=== PATIENT | male | born 1960 | race Caucasian/White ===

== ENCOUNTER → 2016-08-06 | Outpatient (CLI) | payer OTHER | END | disposition home or self-care (01) | LOC: RAD 11:40 | PROVIDERS: ATTEND Neurological Surgery | DX: M41.85 Other forms of scoliosis, thoracolumbar region (principal); M47.895 Other spondylosis, thoracolumbar region; S13.130A Subluxation of C2/C3 cervical vertebrae, initial encounter; M47.893 Other spondylosis, cervicothoracic region; M48.06 Spinal stenosis, lumbar region; Z98.1 Arthrodesis status; Y99.8 Other external cause status; X58.XXXA Exposure to other specified factors, initial encounter; Y93.89 Activity, other specified; Y92.89 Other specified places as the place of occurrence of the external cause | CPT/HCPCS: 72082 ==